=== PATIENT | female | born 1955 | race Caucasian/White ===

== ENCOUNTER 2018-10-07 19:43 | Emergency (ER) | payer BC, OTHER ==
[~2018-10-07] VITALS: Ht 154.9 cm; Wt 99.8 kg
[2018-10-07 20:00] VITALS: BP 158/93
[2018-10-07] MEDS ORDERED: IPRATROPIUM BROM 0.5 MG/2.5ML INH SOL NEB ONE (20:45)
[2018-10-07] MEDS ORDERED: ALBUTEROL SULF 2.5 MG/0.5ML(0.5%) NEB SOLN NEB ONE (20:45)
[2018-10-07] MEDS ORDERED: methylPREDNISolone SOD SUCC 125 MG/2 ML VL IM ONE (21:00)
[2018-10-07] MEDS ORDERED: cefTRIAXone SOD 1,000 MG VL IM ONE (21:00)
== END 2018-10-07 21:36 | disposition home or self-care (01) ==
LOC: ER 19:48
DX: J40 Bronchitis, not specified as acute or chronic (principal); R11.10 Vomiting, unspecified; R19.7 Diarrhea, unspecified; J02.9 Acute pharyngitis, unspecified
CPT/HCPCS: 71046; 94640; 99283; J7611; J7644; J0696

== ENCOUNTER 2022-09-30 10:11 | Emergency (ER) | payer OTHER ==
[~2022-09-30] VITALS: Ht 154.9 cm; Wt 102.0 kg
[2022-09-30 12:35] VITALS: BP 165/96
[2022-09-30] MEDS ORDERED: MELO7.5T9 PO (13:54)
[2022-09-30] MEDS ORDERED: TRAM-297 PO (13:54)
[2022-09-30] MEDS ORDERED: ACETAMINOPHEN 500 MG TAB PO ONE (14:00)
== END 2022-09-30 14:05 | disposition home or self-care (01) ==
LOC: ER 10:11
DX: M23.92 Unspecified internal derangement of left knee (principal); M17.12 Unilateral primary osteoarthritis, left knee; G89.29 Other chronic pain; M54.9 Dorsalgia, unspecified; Z79.899 Other long term (current) drug therapy; Z88.8 Allergy status to other drugs, medicaments and biological substances
CPT/HCPCS: 73562